=== PATIENT | male | born 1935 | race Hispanic/Latino ===

== ENCOUNTER 2022-05-28 09:54 | Outpatient (CLI) | payer OTHER, MEDICAID ==
[2022-05-28 11:19] LABS: Hemoglobin 12.2 g/dL (13.5-17.5); Mean Corpuscular HGB CONC 33.1 g/dL (32.0-36.0); Mean Corpuscular Hemoglobin 28.1 pg (27.0-33.0); Mean Platelet Volume 9.9 fl (7.4-10.4); Platelet Count 169 10x3/uL (150-450); Prothrombin Time 10.4 sec (9.5-12.1); RBC Distribution Width 13.6 % (11.5-14.5); Red Blood Cell (RBC) Count 4.34 10x6/uL (4.32-5.72); White Blood Cell (WBC) Count 4.4 10x3/uL (3.5-10.5)
[2022-05-28 11:22] LABS: Anion Gap 12 mmol/L (10-20); BUN (Urea Nitrogen) 16 mg/dL (8.4-25.7); Calc. Creatinine Clearance 0 mL/min (70-130); Calcium 9.2 mg/dL (7.8-10.44); Carbon Dioxide 24 mmol/L (23-31); Chloride 103 mmol/L (98-107); Estimated GFR 79; Glucose 232 mg/dL (83-110); Potassium 4.4 mmol/L (3.5-5.1); Sodium 135 mmol/L (136-145)
== END 2022-05-28 09:55 | disposition home or self-care (01) ==
LOC: CSHLAB 09:54
PROVIDERS: ATTEND Specialist
DX: Z01.818 Encounter for other preprocedural examination (principal); I65.29 Occlusion and stenosis of unspecified carotid artery
CPT/HCPCS: 80048; 85027; 85610; 93005; 93010

== ENCOUNTER 2022-05-29 09:37 | Inpatient (IN) | payer OTHER, MEDICAID ==
[~2022-05-29 09:37] MED LIST: Atropine Sulfate 0.4 mg/1 ml Vial ONE; Heparin 10,000 UNITS/ 10 ML VIAL ONE; Lidocaine 1% (PF) 30 ML VIAL ONE; PHENYLEPHRINE-NS 100 MCG/ML 10 ML SYRINGE ONE
[2022-05-29] MEDS ORDERED: Phenylephrine 40 MG/NS 250 ML 250 ML ONE (10:47)
[2022-05-29] MEDS ORDERED: Ondansetron PF 4 MG/2 ML Vial ONE (10:52)
[2022-05-29] MEDS ORDERED: Iopamidol 300 61% 100 ML VIAL FS ONE (11:13)
[2022-05-29] MEDS ORDERED: Midazolam HCl 2 mg/2 ml Vial ONE (11:56)
[2022-05-29] MEDS ORDERED: Fentanyl 100 MCG/2 ML VIAL ONE (11:56)
[2022-05-29] MEDS ORDERED: Atropine Sulfate 0.4 mg/1 ml Vial ONE (12:54)
[2022-05-29] MEDS ORDERED: Clopidogrel Bisulfate 300 MG TAB ONE (12:57)
[2022-05-29] MEDS ORDERED: Zolpidem Tartrate 5 MG TAB PO PRN (13:36)
[2022-05-29] MEDS ORDERED: Acetaminophen/Codeine 30-300mg Tablet PO PRN ×2 (13:36)
[2022-05-29] MEDS ORDERED: traMADol HCl 50 MG TAB PO PRN (13:39)
[2022-05-29] MEDS ORDERED: Sodium Chloride 0.9% 1,000 ML IV SCH (13:45)
[2022-05-29 13:53] VITALS: BMI 27.8
[2022-05-29] MEDS: Gabapentin 100 MG CAP PO SCH ×2 (16:14→20:25)
[2022-05-29] MEDS: Atorvastatin Calcium 20 MG TAB PO SCH (20:25)
[2022-05-29] MEDS: Methocarbamol 500 MG TAB PO SCH (20:25)
[2022-05-29] MEDS: Flecainide 50 MG TAB PO SCH (20:25)
[2022-05-30 05:10] LABS: ALT (SGPT) 20 U/L (8-55); AST (SGOT) 25 U/L (5-34); Albumin 3.7 g/dL (3.4-4.8); Alkaline Phosphatase 54 U/L (40-110); Anion Gap 12 mmol/L (10-20); BUN (Urea Nitrogen) 21 mg/dL (8.4-25.7); Bilirubin, Total 0.4 mg/dL (0.2-1.2); Calc. Creatinine Clearance 78 mL/min (70-130); Calcium 8.8 mg/dL (7.8-10.44); Carbon Dioxide 22 mmol/L (23-31); Chloride 109 mmol/L (98-107); Estimated GFR 83; Globulin 2.7 g/dL (2.4-3.5); Glucose 161 mg/dL (83-110); Potassium 3.9 mmol/L (3.5-5.1); Protein, Total 6.4 g/dL (5.8-8.1); Sodium 139 mmol/L (136-145)
[2022-05-30 05:30] LABS: #Basophils 0.1 10x3/uL (0.0-0.2); #Eosinphils 0.4 10x3/uL (0.0-0.5); #Monocytes 0.7 10x3/uL (0.0-1.1); #Neutrophils 2.4 10x3/uL (1.5-8.4); %Basophils 1.2 % (0.0-2.0); %Eosinophils 7.8 % (0.0-6.0); %Lymphocytes 29.2 % (18.0-47.0); %Monocytes 14.5 % (0.0-10.0); %Neutrophils 46.9 % (40.0-75.0); Hemoglobin 11.2 g/dL (13.5-17.5); Mean Corpuscular HGB CONC 33.3 g/dL (32.0-36.0); Mean Corpuscular Hemoglobin 28.2 pg (27.0-33.0); Mean Corpuscular Volume 84.6 fl (81.2-95.1); Platelet Count 173 10x3/uL (150-450); RBC Distribution Width 14.1 % (11.5-14.5); Red Blood Cell (RBC) Count 3.97 10x6/uL (4.32-5.72); White Blood Cell (WBC) Count 5.1 10x3/uL (3.5-10.5)
[2022-05-30] MEDS: Levothyroxine Sodium 25 MCG TAB PO SCH (06:03)
[2022-05-30] MEDS: Aspirin 81 mg Enteric Coated Tablet PO SCH (07:41)
[2022-05-30] MEDS: Clopidogrel Bisulfate 75 MG TAB PO SCH (07:41)
[2022-05-30] MEDS: Methocarbamol 500 MG TAB PO SCH ×2 (07:42→20:25)
[2022-05-30] MEDS: Gabapentin 100 MG CAP PO SCH ×3 (07:42→20:25)
[2022-05-30] MEDS: Flecainide 50 MG TAB PO SCH ×2 (07:42→20:25)
[2022-05-30] MEDS ORDERED: Lisinopril 10 MG TAB PO SCH (09:00)
[2022-05-30] MEDS: Atorvastatin Calcium 20 MG TAB PO SCH (20:25)
[2022-05-31] MEDS: Levothyroxine Sodium 25 MCG TAB PO SCH (05:03)
[2022-05-31] MEDS: Flecainide 50 MG TAB PO SCH (07:28)
[2022-05-31] MEDS: Methocarbamol 500 MG TAB PO SCH (07:28)
[2022-05-31] MEDS: Clopidogrel Bisulfate 75 MG TAB PO SCH (07:29)
[2022-05-31] MEDS: Gabapentin 100 MG CAP PO SCH (07:29)
[2022-05-31] MEDS: Aspirin 81 mg Enteric Coated Tablet PO SCH (07:29)
[2022-05-31 10:52] VITALS: BP 96/50; TEMP 98.6
== END 2022-05-31 10:49 | disposition home or self-care (01) | DRG 36 ==
LOC: CSHSDC 09:37 → CSHICU 13:42
PROVIDERS: ADMIT Specialist; ATTEND Specialist
PROC: B40D1ZZ Plain Radiography of Aorta and Bilateral Lower Extremity Arteries using Low Osmolar Contrast (ICD-10-PCS; principal; 2022-05-29)
PROC: 037L3DZ Dilation of Left Internal Carotid Artery with Intraluminal Device, Percutaneous Approach (ICD-10-PCS; 2022-05-29)
DX: I65.22 Occlusion and stenosis of left carotid artery (principal); I95.9 Hypotension, unspecified; Z88.0 Allergy status to penicillin; I10 Essential (primary) hypertension; E11.9 Type 2 diabetes mellitus without complications; E78.2 Mixed hyperlipidemia; Z79.82 Long term (current) use of aspirin; Z79.899 Other long term (current) drug therapy; Z79.84 Long term (current) use of oral hypoglycemic drugs; I48.0 Paroxysmal atrial fibrillation; K21.9 Gastro-esophageal reflux disease without esophagitis; G89.29 Other chronic pain; Z86.16 Personal history of COVID-19; Z82.49 Family history of ischemic heart disease and other diseases of the circulatory system; Z83.3 Family history of diabetes mellitus; Z79.01 Long term (current) use of anticoagulants; Z79.890 Hormone replacement therapy
CPT/HCPCS: 36215; 36222; 36225; 36227; 36415; 37215; 75710; 80048; 80053; 85025; 85027; 85347; 85610; 93005; 93010; 94760; 99152; 99153; C1725; C1760; C1769; C1876; C1884; C1894; J0461; J1644; J2001; J2250; J2405; J3010; J7050; Q9967

== ENCOUNTER 2022-11-06 11:01 | Observation (INO) | payer OTHER ==
[2022-11-06 12:02] LABS: #Monocytes 0.8 10x3/uL (0.0-1.1); #Neutrophils 8.8 10x3/uL (1.5-8.4); %Basophils 0.3 % (0.0-2.0); %Eosinophils 0.2 % (0.0-6.0); %Lymphocytes 7.6 % (18.0-47.0); %Monocytes 7.3 % (0.0-10.0); Hemoglobin 14.2 g/dL (13.5-17.5); Mean Corpuscular HGB CONC 33.8 g/dL (32.0-36.0); Mean Corpuscular Hemoglobin 28.3 pg (27.0-33.0); Mean Corpuscular Volume 83.8 fl (81.2-95.1); RBC Distribution Width 16.5 % (11.5-14.5); Red Blood Cell (RBC) Count 5.01 10x6/uL (4.32-5.72); White Blood Cell (WBC) Count 10.5 10x3/uL (3.5-10.5)
[2022-11-06 12:10] LABS: ALT (SGPT) 38 U/L (8-55); AST (SGOT) 110 U/L (5-34); Alkaline Phosphatase 85 U/L (40-110); Anion Gap 15 mmol/L (10-20); BUN (Urea Nitrogen) 18 mg/dL (8.4-25.7); Bilirubin, Total 0.4 mg/dL (0.2-1.2); Calc. Creatinine Clearance 0 mL/min (70-130); Calcium 8.8 mg/dL (7.8-10.44); Carbon Dioxide 21 mmol/L (23-31); Chloride 106 mmol/L (98-107); Estimated GFR 77; Globulin 3.3 g/dL (2.4-3.5); Glucose 147 mg/dL (83-110); Potassium 3.7 mmol/L (3.5-5.1); Protein, Total 7.3 g/dL (5.8-8.1); Sodium 138 mmol/L (136-145)
[2022-11-06 12:22] LABS: Mean Platelet Volume 9.9 fl (7.4-10.4); Platelet Count 116 10x3/uL (150-450)
[2022-11-06 12:23] LABS: RBC Morph Comment Within Normal Limits
[2022-11-06 12:24] LABS: Platelet Adequacy Comment Appears Decreased
[2022-11-06 13:25] LABS: INR-International Normal Ratio 1.1; PTT 32.4 sec (22.0-33.0); Prothrombin Time 11.9 sec (9.5-12.1)
[2022-11-06] MEDS ORDERED: Nitroglycerin 0.4 MG TAB (25 Tab Bottle) SL PRN (13:27)
[2022-11-06] MEDS ORDERED: Glucagon 1 MG/ML KIT IM PRN (13:38)
[2022-11-06] MEDS ORDERED: Dextrose 50% Abboject 50 ML SYRINGE SLOW IVP PRN (13:38)
[2022-11-06] MEDS ORDERED: HumaLOG 300 UNITS/3 ML VIAL SC PRN ×2 (13:38)
[2022-11-06] MEDS ORDERED: Dextrose 5% in Water 1,000 ML IV PRN (13:38)
[2022-11-06 13:55] LABS: CK (CPK) 3306 U/L (30-200); Magnesium 1.8 mg/dL (1.6-2.6)
[2022-11-06 16:24] LABS: Troponin I 0.393 ng/mL (< 0.028)
[2022-11-06 16:44] VITALS: BMI 25.1
[2022-11-06] MEDS: Sodium Chloride 0.9% 1,000 ML IV SCH (16:45)
[2022-11-06 18:10] LABS: Troponin I 0.401 ng/mL (< 0.028)
[2022-11-06] MEDS ORDERED: Ibuprofen 600 MG TAB PO SCH (20:30)
[2022-11-06] MEDS ORDERED: Ibuprofen 600 MG TAB PO PRN (20:38)
[2022-11-06] MEDS: Apixaban 5 MG TAB PO SCH (20:42)
[2022-11-07] MEDS: Sodium Chloride 0.9% 1,000 ML IV SCH ×2 (02:18→08:11)
[2022-11-07] MEDS: Apixaban 5 MG TAB PO SCH (08:11)
[2022-11-07] MEDS ORDERED: Clopidogrel Bisulfate 75 MG TAB PO SCH (09:00)
[2022-11-07] MEDS ORDERED: Aspirin Chewable 81 MG TAB PO SCH (09:00)
[2022-11-07 12:57] VITALS: BP 135/66; TEMP 97.8
[2022-11-07 14:12] LABS: Bilirubin Neg (Negative); Blood, Urine Negative (Negative); Clarity Clear (Clear); Glucose, Urine (Dipstick) Normal (Negative); Ketone, Urine Negative (Negative); Leukocyte Negative (Negative); Nitrite Negative (Negative); Protein, Urine (Dipstick) Negative (Neg-Trace); Specific Gravity, Urine 1.015 (1.005-1.030); Urobilinogen Normal mg/dL (Less than 2)
[2022-11-07 14:19] LABS: CAUTI Indications for Culture Dysuria,urgency,freq; RBC/HPF 0-3 HPF (0-3); Squamous Epithelial None Seen HPF (0-3); WBC/HPF 0-3 HPF (0-3)
[2022-11-07 14:20] LABS: Bacteria/HPF Rare-Few HPF (None Seen); Urine Culture Reflex No No
== END 2022-11-07 16:00 | disposition home or self-care (01) ==
LOC: CSHERS 11:01 → CSHTELE 16:23
PROVIDERS: ADMIT Internal Medicine; ATTEND Hospitalist
DX: R07.89 Other chest pain (principal); I25.10 Atherosclerotic heart disease of native coronary artery without angina pectoris; I48.0 Paroxysmal atrial fibrillation; R29.6 Repeated falls; M62.82 Rhabdomyolysis; I11.0 Hypertensive heart disease with heart failure; E78.5 Hyperlipidemia, unspecified; E11.65 Type 2 diabetes mellitus with hyperglycemia; E03.9 Hypothyroidism, unspecified; I50.1 Left ventricular failure, unspecified; G45.9 Transient cerebral ischemic attack, unspecified; N50.89 Other specified disorders of the male genital organs; Z79.01 Long term (current) use of anticoagulants; Z79.899 Other long term (current) drug therapy; Z88.0 Allergy status to penicillin; Z79.890 Hormone replacement therapy; Z79.82 Long term (current) use of aspirin; Z79.84 Long term (current) use of oral hypoglycemic drugs
CPT/HCPCS: 70450; 71045; 73060; 76870; 81001; 82550; 82553; 82962 ×2; 83735; 84484 ×2; 85610; 85730; 93005; 93306; 93976; 96372; 99285; G0378 ×3; 36415; 36416; 80053; 84443; 85025; J1650; J7050

== ENCOUNTER 2023-01-23 20:34 | Emergency (ER) | payer OTHER, MEDICARE ==
[2023-01-24] MEDS ORDERED: diphenhydrAMINE 50 MG/ML VIAL ONE (01:15)
== END 2023-01-24 01:25 | disposition home or self-care (01) ==
LOC: CSHERS 20:34
DX: L23.7 Allergic contact dermatitis due to plants, except food (principal); R21 Rash and other nonspecific skin eruption
CPT/HCPCS: 96372; 99282; J1200

== ENCOUNTER 2023-05-31 11:13 | Emergency (ER) | payer OTHER ==
[2023-05-31 12:34] LABS: #Eosinphils 0.4 10x3/uL (0.0-0.5); #Monocytes 0.7 10x3/uL (0.0-1.1); #Neutrophils 1.8 10x3/uL (1.5-8.4); %Basophils 0.9 % (0.0-2.0); %Eosinophils 8.9 % (0.0-6.0); %Lymphocytes 31.1 % (18.0-47.0); %Monocytes 16.9 % (0.0-10.0); Hematocrit 33.3 % (38.8-50.0); Hemoglobin 11.6 g/dL (13.5-17.5); Mean Corpuscular HGB CONC 34.8 g/dL (32.0-36.0); Mean Corpuscular Hemoglobin 30.3 pg (27.0-33.0); Mean Corpuscular Volume 86.9 fl (81.2-95.1); Mean Platelet Volume 9.7 fl (7.4-10.4); Platelet Count 134 10x3/uL (150-450); RBC Distribution Width 14.9 % (11.5-14.5); Red Blood Cell (RBC) Count 3.83 10x6/uL (4.32-5.72); White Blood Cell (WBC) Count 4.3 10x3/uL (3.5-10.5)
[2023-05-31 12:48] LABS: ALT (SGPT) 20 U/L (8-55); AST (SGOT) 23 U/L (5-34); Albumin 4.1 g/dL (3.4-4.8); Alkaline Phosphatase 71 U/L (40-110); Anion Gap 13 mmol/L (10-20); BUN (Urea Nitrogen) 17 mg/dL (8.4-25.7); Bilirubin, Total 0.5 mg/dL (0.2-1.2); Calc. Creatinine Clearance 0 mL/min (70-130); Calcium 9.1 mg/dL (7.8-10.44); Carbon Dioxide 22 mmol/L (23-31); Chloride 107 mmol/L (98-107); Estimated GFR 84; Globulin 2.8 g/dL (2.4-3.5); Glucose 132 mg/dL (83-110); Potassium 4.1 mmol/L (3.5-5.1); Protein, Total 6.9 g/dL (5.8-8.1); Sodium 138 mmol/L (136-145)
[2023-05-31 12:50] LABS: Troponin I Less than 0.010 ng/mL (< 0.028)
[2023-05-31 14:16] LABS: Influenza A by NAA Not Detected (NotDetected); Influenza B by NAA Not Detected (NotDetected); SARS-CoV-2 NAA Rapid Test Not Detected (NotDetected)
== END 2023-05-31 15:13 | disposition home or self-care (01) ==
LOC: CSHERS 11:13
DX: J98.4 Other disorders of lung (principal); R07.89 Other chest pain; I10 Essential (primary) hypertension; E11.9 Type 2 diabetes mellitus without complications; M19.90 Unspecified osteoarthritis, unspecified site; Z75.8 Other problems related to medical facilities and other health care
CPT/HCPCS: 0240U; 71045; 80053; 84484; 85025; 36415; 93005; 93010

== ENCOUNTER 2023-08-29 11:47 | Emergency (ER) | payer OTHER ==
[2023-08-29] MEDS ORDERED: Morphine 4 MG/ML VIAL ONE (12:56)
[2023-08-29 13:02] LABS: #Basophils 0.08 10x3/uL (0.0-0.2); #Eosinphils 0.29 10x3/uL (0.0-0.5); #Neutrophils 2.63 10x3/uL (1.5-8.4); %Basophils 1.6 % (0.0-2.0); %Eosinophils 5.7 % (0.0-6.0); %Monocytes 17.7 % (0.0-10.0); %Neutrophils 51.6 % (40.0-75.0); Hematocrit 32.6 % (38.8-50.0); Hemoglobin 11.2 g/dL (13.5-17.5); Mean Corpuscular HGB CONC 34.4 g/dL (32.0-36.0); Mean Corpuscular Volume 87.4 fl (81.2-95.1); Mean Platelet Volume 9.7 fl (7.4-10.4); Platelet Count 172 10x3/uL (150-450); RBC Distribution Width 14.8 % (11.5-14.5); Red Blood Cell (RBC) Count 3.73 10x6/uL (4.32-5.72); White Blood Cell (WBC) Count 5.1 10x3/uL (3.5-10.5)
[2023-08-29 13:20] LABS: ALT (SGPT) 12 U/L (8-55); AST (SGOT) 22 U/L (5-34); Albumin 3.6 g/dL (3.4-4.8); Alkaline Phosphatase 50 U/L (40-110); Anion Gap 14 mmol/L (10-20); BUN (Urea Nitrogen) 19 mg/dL (8.4-25.7); Bilirubin, Total 0.4 mg/dL (0.2-1.2); CK (CPK) 19 U/L (30-200); Calc. Creatinine Clearance 0 mL/min (70-130); Calcium 9.1 mg/dL (7.8-10.44); Carbon Dioxide 24 mmol/L (23-31); Chloride 103 mmol/L (98-107); Estimated GFR 74; Globulin 3.2 g/dL (2.4-3.5); Glucose 99 mg/dL (83-110); Lipase 12 U/L (8-78); Potassium 3.9 mmol/L (3.5-5.1); Protein, Total 6.8 g/dL (5.8-8.1); Sodium 137 mmol/L (136-145)
[2023-08-29 13:21] LABS: Troponin I Less than 0.010 ng/mL (< 0.028)
[2023-08-29 13:46] LABS: Influenza A by NAA Not Detected (NotDetected); Influenza B by NAA Not Detected (NotDetected); SARS-CoV-2 NAA Rapid Test Not Detected (NotDetected)
[2023-08-29 15:23] LABS: Bilirubin Neg (Negative); Blood, Urine Negative (Negative); Clarity Clear (Clear); Glucose, Urine (Dipstick) Normal (Negative); Ketone, Urine Negative (Negative); Leukocyte Negative (Negative); Nitrite Negative (Negative); Protein, Urine (Dipstick) Negative (Neg-Trace); Urobilinogen Normal mg/dL (Less than 2); pH, Urine 6.5 (5.0-9.0)
[2023-08-29 15:34] LABS: Bacteria/HPF None Seen HPF (None Seen); CAUTI Indications for Culture Pelvic or flank pain; RBC/HPF None Seen HPF (0-3); Squamous Epithelial 0-3 HPF (0-3); WBC/HPF None Seen HPF (0-3)
[2023-08-29 15:37] LABS: Urine Culture Reflex No No
== END 2023-08-29 17:10 | disposition home or self-care (01) ==
LOC: CSHERS 11:47
DX: E86.0 Dehydration (principal); R53.1 Weakness; E11.9 Type 2 diabetes mellitus without complications; I10 Essential (primary) hypertension
CPT/HCPCS: 0240U; 70450; 71045; 81001; 82140; 82550; 83690; 84484; 93005; 80053; 84443; 85025; 96374; J2270